=== PATIENT | male | born 1945 | race Caucasian/White ===

== ENCOUNTER 2022-04-16 06:02 | Day surgery (SDC) | payer MEDICARE ==
[2022-04-15 14:42] LABS: APPEARANCE,URINE CLEAR (CLEAR); BILIRUBIN,URINE NEGATIVE (NEGATIVE); COLOR,URINE YELLOW (YELLOW); GLUCOSE, URINE (UA) NEGATIVE (NEGATIVE); KETONES,URINE NEGATIVE (NEGATIVE); LEUKOCYTE ESTERASE ,URINE NEGATIVE Leu/uL (NEGATIVE); NITRATE,URINE NEGATIVE (NEGATIVE); OCCULT BLOOD,URINE LARGE (NEGATIVE); PROTEIN,URINE NEGATIVE (NEGATIVE); UROBILINOGEN,URINE 0.2 mg/dL (0.2-1.0)
[2022-04-15 14:50] LABS: MUCUS,URINE RARE LPF (None Seen); RBC,URINE >100 /HPF (0-1); SQUAMOUS EPITHELIAL CELL,UR RARE /HPF (0-2)
[2022-04-15 14:54] LABS: CREATININE 1.2 mg/dL (0.5-1.5); POTASSIUM 4.6 mmol/L (3.5-5.1)
[2022-04-15 14:57] LABS: BASOPHILS % (AUTO) 0.9 % (0.0-5.0); HEMATOCRIT 41.5 % (42-54); INR 1.07 (0.85-1.15); LYMPHOCYTES % (AUTO) 26.8 % (21.0-51.0); MEAN CORPUSCULAR HGB CONC 31.1 g/dL (32.0-36.0); MEAN CORPUSCULAR VOLUME 99.8 fL (79-99); MONOCYTES % (AUTO) 7.6 % (3.0-13.0); NEUTROPHILS % (AUTO) 62.2 % (40.0-77.0); PLATELET COUNT (AUTO) 294 K/uL (130-400); PROTHROMBIN TIME 11.6 SEC (9.6-11.6); RED BLOOD CELL COUNT(AUTO) 4.16 MIL/uL (4.50-6.20); RED CELL DISTRIBUTION WIDTH 13.1 % (11.0-15.5); WHITE BLOOD COUNT (AUTO) 7.4 K/uL (4.8-10.8)
[2022-04-15 14:58] LABS: PARTIAL THROMBOPLASTIN TIME 28.5 SEC (26.3-35.5)
[2022-04-15 15:14] VITALS: BP 118/70
[~2022-04-16] VITALS: Ht 182.9 cm; Wt 92.3 kg
[2022-04-16] VITALS (8 sets, daily range): BP systolic 114–134; BP diastolic 61–74
[~2022-04-16 06:02] MED LIST: AMIO200T68 PO; APIX5TAB PO; ATOR10 PO; FURO20TA4 PO; LISI10TA24 PO; METO-408 PO; MEXI200 PO
[2022-04-16] MEDS ORDERED: 0.9%NACL 1000ML 1,000 ML IV ONE (06:11)
[2022-04-16] MEDS ORDERED: LIDOCAINE HCL 1% 20 ML VIAL ONE ×2 (07:01→08:07)
[2022-04-16] MEDS ORDERED: IOHEXOL-350 50ML VIAL IV ONE (07:02)
[2022-04-16] MEDS ORDERED: IOHEXOL 350 MG/ML 100ML INFUS..BTL IV ONE (07:02)
[2022-04-16] MEDS ORDERED: HEPARIN 10,000 UNIT/10ML (1,000 UNIT/ML) VIAL ONE (07:02)
[2022-04-16] MEDS ORDERED: NITROGLYCERIN 50MG VIAL ONE (07:02)
[2022-04-16] MEDS ORDERED: MIDAZOLAM HCL 1 MG/ML 2ML VIAL ONE (07:02)
[2022-04-16] MEDS ORDERED: FENTANYL CITRATE PF 50 MCG/1 ML 2ML VIAL ONE (07:03)
[2022-04-16] MEDS ORDERED: VERAPAMIL HCL 2.5 MG/ML VIAL ONE (07:06)
[2022-04-16] MEDS ORDERED: 0.9%NACL 1000ML 1,000 ML IV SCH ×2 (08:00→10:00)
[2022-04-16] MEDS ORDERED: DiphenhydrAMINE HCL 50 MG/ML VIAL IVP PRN (08:00)
== END 2022-04-16 12:40 | disposition home or self-care (01) ==
LOC: DAH 06:02
PROVIDERS: ATTEND Internal Medicine Interventional Cardiology
DX: I25.10 Atherosclerotic heart disease of native coronary artery without angina pectoris (principal); I34.0 Nonrheumatic mitral (valve) insufficiency; I48.0 Paroxysmal atrial fibrillation; I10 Essential (primary) hypertension; E78.2 Mixed hyperlipidemia; Z98.49 Cataract extraction status, unspecified eye; Z98.890 Other specified postprocedural states; Z90.49 Acquired absence of other specified parts of digestive tract; Z82.49 Family history of ischemic heart disease and other diseases of the circulatory system; Z82.5 Family history of asthma and other chronic lower respiratory diseases; Z87.891 Personal history of nicotine dependence; Z79.01 Long term (current) use of anticoagulants
CPT/HCPCS: 80048; 85025; 85610; 85730; 81001; 36415; 93005; 93460; C1894 ×6; C1769 ×2; C1760; J3010; J7030; J1644 ×3; J2250; J3490 ×2; Q9967 ×2; A4215; A4222; A4221; A4663; A4216; A4606; Q9965 ×2; A4223 ×3; 99156; 99157